=== PATIENT | female | born 1985 | race Caucasian/White ===

== ENCOUNTER 2017-09-01 15:47 | Emergency (ER) | payer BC ==
[~2017-09-01] VITALS: Ht 152.4 cm; Wt 65.0 kg
[2017-09-01 15:50] VITALS: BP 124/70; PULSE 75; RESP 18; TEMP 98.6; O2SAT 100
[2017-09-01] MEDS ORDERED: SODIUM CHLOR 0.9% 1000 ML INJ 1,000 ML IV ONE (16:30)
--- NOTE | 2017-09-01 16:54 | PD ---
HPI Chief Complaint: Related Problem Time Seen by Provider: 16:00 Travel History International Travel<30 days: No Contact w/Intl Traveler<30days: No Traveled to known affect area: No History of Present Illness HPI The patient is a 32-year-old female who presents emergency department after having a spontaneous . The patient states she is a whose last menstrual cycle was June 08, 2017. The patient states she had some spotting over the month of July was seen in the emergency department and then her physician's office. The patient is currently followed by the [employer] filler plastic [employer]s, Dr. Hobson. The patient was seen in her [employer] filler plastic dolls's office on Tuesday and apparently had an ultrasound which revealed a 9 week fetus that she' ll been 12 weeks of gestation with no heart tones. The patient was scheduled for an outpatient D&C next Tuesday. However, the patient had increasing bleeding earlier today, unsure if she passed products of conception. She did have some abdominal cramping which improved after taking pain medications at home. The patient thinks her blood type is A+. Patient denies any nausea, vomiting, or upper abdominal pain. The patient called her [employer]s's office and was referred to the emergency department. [facility] Past Medical History Medical History: Denies Significant Hx Tetanus Vaccination: > 5 Years ?: : 2 Miscarriage: 1 Past Surgical History Oral Surgery: Yes Other Surgery: Yes (IVF ) Social History Alcohol Use: No Tobacco Use: No Substance Use: No Allergies-Medications (Allergen,Severity, Reaction): Coded Allergies: No Known Allergies (Unverified , 09/01/17) Review of Systems Except as stated in HPI: all other systems reviewed are Neg General / Constitutional: No: Fever Cardiovascular: No: Chest Pain or Discomfort Respiratory: No: Shortness of Breath Gastrointestinal: No: Nausea, Vomiting, Abdominal Pain Genitourinary: Positive: Pelvic Pain, Vaginal Bleeding, No: Dysuria, Discharge Physical Exam Narrative GENERAL: Awake, alert, pleasant 32-year-old female who appears her stated age and is in no acute respiratory distress. SKIN: Focused skin assessment warm/dry. HEAD: Atraumatic. Normocephalic. EYES: No injection or drainage. ENT: No nasal bleeding or discharge. Mucous membranes pink and moist. NECK: Trachea midline. No JVD. GASTROINTESTINAL: Abdomen soft, non-tender, nondistended. No rebound tenderness. Back: No CVA tenderness. Pelvic: The exam was performed in the presence of a female nurse. External examination reveals blood at the introitus. Speculum examination reveals blood in the vaginal vault. Cervix has a slightly bluish discoloration, cervical os is approximately 6-7 mm in diameter, there is blood at the cervical os. MUSCULOSKELETAL: No obvious deformities. No clubbing. No cyanosis. No edema. NEUROLOGICAL: Awake and alert. No obvious cranial nerve deficits. Motor grossly within normal limits. Normal speech. PSYCHIATRIC: Appropriate mood and affect; insight and judgment normal. Data Data Last Documented VS Vital Signs Date Time Temp Pulse Resp B/P (MAP) Pulse Ox O2 Delivery O2 Flow Rate FiO2 09/01/17 21:02 09/01/17 15:50 98.6 75 18 100 Room Air Orders Orders Complete Blood Count With Diff (09/01/17 16:21) Basic Metabolic Panel (Bmp) (09/01/17 16:21) Complete Rh (09/01/17 16:21) Urinalysis - C+S If Indicated (09/01/17 16:21) Sodium Chlor 0.9% 1000 Ml Inj (Ns 1000 M (09/01/17 16:30) Ed Poc Ultrasound (09/01/17 ) Ed Urine Pregnancytest Poc (09/01/17 16:37) Us Pelvis (Ques Preg/Ectopic) (09/01/17 ) Beta Hcg (Quant/Titer) (09/01/17 17:33) Ed Discharge Order (09/01/17 20:45) Labs Laboratory Tests Test 09/01/17 16:43 White Blood Count 9.2 TH/MM3 Red Blood Count 3.96 MIL/MM3 Hemoglobin 13.1 GM/DL Hematocrit 37.3 % Mean Corpuscular Volume 94.2 FL Mean Corpuscular Hemoglobin 33.1 PG Mean Corpuscular Hemoglobin Concent 35.2 % Red Cell Distribution Width 12.6 % Platelet Count 363 TH/MM3 Mean Platelet Volume 7.1 FL Neutrophils (%) (Auto) 75.3 % Lymphocytes (%) (Auto) 17.8 % Monocytes (%) (Auto) 6.2 % Eosinophils (%) (Auto) 0.3 % Basophils (%) (Auto) 0.4 % Neutrophils # (Auto) 6.9 TH/MM3 Lymphocytes # (Auto) 1.6 TH/MM3 Monocytes # (Auto) 0.6 TH/MM3 Eosinophils # (Auto) 0.0 TH/MM3 Basophils # (Auto) 0.0 TH/MM3 CBC Comment DIFF FINAL Differential Comment Urine Color LIGHT-YELLOW Urine Turbidity CLEAR Urine pH 6.0 Urine Specific [place] 1.002 Urine Protein TRACE mg/dL Urine Glucose (UA) NEG mg/dL Urine Ketones NEG mg/dL Urine Occult Blood LARGE Urine Nitrite NEG Urine Bilirubin NEG Urine Urobilinogen LESS THAN 2.0 MG/DL Urine Leukocyte Esterase NEG Urine RBC 13 /hpf Urine WBC 4 /hpf Urine Squamous Epithelial Cells 2 /hpf Urine Amorphous Sediment RARE Urine Bacteria FEW /hpf Microscopic Urinalysis Comment CULT NOT INDICATED Blood Urea Nitrogen 6 MG/DL Creatinine 0.65 MG/DL Random Glucose 85 MG/DL Calcium Level 8.8 MG/DL Sodium Level 138 MEQ/L Potassium Level 3.8 MEQ/L Chloride Level 104 MEQ/L Carbon Dioxide Level 25.7 MEQ/L Anion Gap 8 MEQ/L Estimat Glomerular Filtration Rate 106 ML/MIN Human Chorionic Gonadotropin, Quant 5351 MIU/ML MDM Medical Decision Making Medical Screen Exam Complete: Yes Emergency Medical Condition: Yes Medical Record Reviewed: Yes Interpretation(s) Last Impressions Pelvis Ultrasound 09/01/17 0000 Signed Impressions: Service Date/Time: August 17:29 - CONCLUSION: Anechoic cyst right ovary. Hypoechoic cystic structure left ovary. No identifiable intrauterine gestation at this time. Close clinical and sonographic followup recommended. Gallo Suresh MD Laboratory Tests Test 09/01/17 16:43 White Blood Count 9.2 TH/MM3 Red Blood Count 3.96 MIL/MM3 Hemoglobin 13.1 GM/DL Hematocrit 37.3 % Mean Corpuscular Volume 94.2 FL Mean Corpuscular Hemoglobin 33.1 PG Mean Corpuscular Hemoglobin Concent 35.2 % Red Cell Distribution Width 12.6 % Platelet Count 363 TH/MM3 Mean Platelet Volume 7.1 FL Neutrophils (%) (Auto) 75.3 % Lymphocytes (%) (Auto) 17.8 % Monocytes (%) (Auto) 6.2 % Eosinophils (%) (Auto) 0.3 % Basophils (%) (Auto) 0.4 % Neutrophils # (Auto) 6.9 TH/MM3 Lymphocytes # (Auto) 1.6 TH/MM3 Monocytes # (Auto) 0.6 TH/MM3 Eosinophils # (Auto) 0.0 TH/MM3 Basophils # (Auto) 0.0 TH/MM3 CBC Comment DIFF FINAL Differential Comment Urine Color LIGHT-YELLOW Urine Turbidity CLEAR Urine pH 6.0 Urine Specific [place] 1.002 Urine Protein TRACE mg/dL Urine Glucose (UA) NEG mg/dL Urine Ketones NEG mg/dL Urine Occult Blood LARGE Urine Nitrite NEG Urine Bilirubin NEG Urine Urobilinogen LESS THAN 2.0 MG/DL Urine Leukocyte Esterase NEG Urine RBC 13 /hpf Urine WBC 4 /hpf Urine Squamous Epithelial Cells 2 /hpf Urine Amorphous Sediment RARE Urine Bacteria FEW /hpf Microscopic Urinalysis Comment CULT NOT INDICATED Blood Urea Nitrogen 6 MG/DL Creatinine 0.65 MG/DL Random Glucose 85 MG/DL Calcium Level 8.8 MG/DL Sodium Level 138 MEQ/L Potassium Level 3.8 MEQ/L Chloride Level 104 MEQ/L Carbon Dioxide Level 25.7 MEQ/L Anion Gap 8 MEQ/L Estimat Glomerular Filtration Rate 106 ML/MIN Human Chorionic Gonadotropin, Quant 5351 MIU/ML Differential Diagnosis Differential diagnosis includes spontaneous , missed AB, threatened AB, IUP, normal , ectopic . Narrative Course IV was established, labs are drawn and sent, and the patient was placed on cardiac telemetry monitoring and continuous pulse oximetry monitoring. Bedside ultrasound was performed, there is no visible IUP, there does appear to be blood products within the uterus, therefore, formal ultrasound was ordered. POC was obtained, CBC was sent to lab. A pelvic exam was performed in the presence of a female nurse. I discussed the plan of care with the patient's [employer] prior to ordering ultrasound and labs, he is agreeable, I will notify Dr. Hobson of the findings. The patient's blood type is A positive, therefore, no indication for RhoGAM. Ultrasound reveals no IUP, cervical canal appears clear, it appears the patient had a complete AB. I discussed the findings with the patient's [employer], Dr. Hobson, who states the patient can follow-up as an outpatient. Diagnosis Primary Impression: Spontaneous Patient Instructions: General Instructions Additional Instructions: Please provide the patient copy of her labs and ultrasound report at discharge. Follow up with her [employer]. Return if symptoms worsen or progress. Med/Other Pt SpecificInfo: No Change to Meds Disposition: 01 DISCHARGE HOME Condition: Stable Van Montez MD Sep 01, 2017 16:53
[2017-09-01 17:15] LABS: AUTOMATED NEUTROPHIL # 6.9 TH/MM3 (1.8-7.7); BASOPHIL % 0.4 % (0.0-2.0); EOSINOPHIL % 0.3 % (0.0-4.0); HEMATOCRIT 37.3 % (35.0-46.0); HEMOGLOBIN 13.1 GM/DL (11.6-15.3); LYMPH % 17.8 % (9.0-44.0); LYMPHOCYTE # 1.6 TH/MM3 (1.0-4.8); MEAN CELL VOLUME 94.2 FL (80.0-100.0); MEAN CORPUSCULAR HEMOGLOBIN 33.1 PG (27.0-34.0); MEAN CORPUSCULAR HGB CONC 35.2 % (32.0-36.0); MEAN PLATELET VOLUME 7.1 FL (7.0-11.0); MONO % 6.2 % (0.0-8.0); MONOCYTE # 0.6 TH/MM3 (0-0.9); NEUT % 75.3 % (16.0-70.0); PLATELET COUNT 363 TH/MM3 (150-450); RED BLOOD COUNT 3.96 MIL/MM3 (4.00-5.30); RED CELL DISTRIBUTION WIDTH 12.6 % (11.6-17.2); WHITE BLOOD COUNT 9.2 TH/MM3 (4.0-11.0)
[2017-09-01 17:32] LABS: AMORPHOUS SEDIMENT, URINE RARE; BACTERIA, URINE FEW /hpf; BILIRUBIN, URINE NEG (NEG); BLOOD, URINE LARGE (NEG); GLUCOSE,URINE NEG (NEG); KETONE, URINE NEG (NEG); NITRITE,URINE NEG (NEG); SQUAMOUS EPITHELIAL CELL URINE 2 /hpf (0-5); URINE COLOR LIGHT-YELLOW (YELLW/STRAW); URINE LEUKOCYTE ESTERASE NEG (NEG)
[2017-09-01 17:41] LABS: BICARBONATE 25.7 MEQ/L (21.0-32.0); CALCIUM 8.8 MG/DL (8.5-10.1); CREATININE 0.65 MG/DL (0.50-1.00)
--- NOTE | 2017-09-01 20:37 | RADRPT ---
EXAM DATE/TIME: 09/01/2017 17:29 [facility] COMPARISON: No previous studies available for comparison. INDICATIONS : Bleeding and pain with . LAB(S): Beta-hC MEDICAL HISTORY : . Miscarriage x1. SURGICAL HISTORY : IVF. ENCOUNTER: Initial ACUITY: 1 week PAIN SCORE: 2/10 LOCATION: Bilateral pelvis MEASUREMENTS: UTERUS: 11.1 x 6.9 x 5.2 cm ENDOMETRIAL STRIPE: 11 mm RIGHT OVARY: 3.0 x 1.6 x 1.5 cm LEFT OVARY: 3.9 x 2.2 x 1.6 cm FREE FLUID: No CROWN RUMP LENGTH: Non visualized. = WKS DAYS FHR: Non visualized. BPM FINDINGS: UTERUS: The myometrium has homogeneous echotexture without mass. RIGHT OVARY: 1.6 x 1.4 x 1.6 cm anechoic cystic structure the right ovary. LEFT OVARY: 1.8 x 1.8 x 1.4 cm hypoechoic left ovarian mass. MISCELLANEOUS: No free fluid. CONCLUSION: Anechoic cyst right ovary. Hypoechoic cystic structure left ovary. No identifiable intrauterine gestation at this time. Close cl inical and sonographic followup recommended. Gallo Suresh MD on September 01, 2017 at 20:33 Board Certified Radiologist. This report was verified electronically.
--- NOTE | 2017-09-01 20:45 | PD ---
Data Data Last Documented VS Vital Signs Date Time Temp Pulse Resp B/P (MAP) Pulse Ox O2 Delivery O2 Flow Rate FiO2 09/01/17 15:50 98.6 75 18 124/70 (88) 100 Room Air Orders Orders Complete Blood Count With Diff (09/01/17 16:21) Basic Metabolic Panel (Bmp) (09/01/17 16:21) Complete Rh (09/01/17 16:21) Urinalysis - C+S If Indicated (09/01/17 16:21) Sodium Chlor 0.9% 1000 Ml Inj (Ns 1000 M (09/01/17 16:30) Ed Poc Ultrasound (09/01/17 ) Ed Urine Pregnancytest Poc (09/01/17 16:37) Us Pelvis (Ques Preg/Ectopic) (09/01/17 ) Beta Hcg (Quant/Titer) (09/01/17 17:33) Labs Laboratory Tests Test 09/01/17 16:43 White Blood Count 9.2 TH/MM3 Red Blood Count 3.96 MIL/MM3 Hemoglobin 13.1 GM/DL Hematocrit 37.3 % Mean Corpuscular Volume 94.2 FL Mean Corpuscular Hemoglobin 33.1 PG Mean Corpuscular Hemoglobin Concent 35.2 % Red Cell Distribution Width 12.6 % Platelet Count 363 TH/MM3 Mean Platelet Volume 7.1 FL Neutrophils (%) (Auto) 75.3 % Lymphocytes (%) (Auto) 17.8 % Monocytes (%) (Auto) 6.2 % Eosinophils (%) (Auto) 0.3 % Basophils (%) (Auto) 0.4 % Neutrophils # (Auto) 6.9 TH/MM3 Lymphocytes # (Auto) 1.6 TH/MM3 Monocytes # (Auto) 0.6 TH/MM3 Eosinophils # (Auto) 0.0 TH/MM3 Basophils # (Auto) 0.0 TH/MM3 CBC Comment DIFF FINAL Differential Comment Urine Color LIGHT-YELLOW Urine Turbidity CLEAR Urine pH 6.0 Urine Specific [place] 1.002 Urine Protein TRACE mg/dL Urine Glucose (UA) NEG mg/dL Urine Ketones NEG mg/dL Urine Occult Blood LARGE Urine Nitrite NEG Urine Bilirubin NEG Urine Urobilinogen LESS THAN 2.0 MG/DL Urine Leukocyte Esterase NEG Urine RBC 13 /hpf Urine WBC 4 /hpf Urine Squamous Epithelial Cells 2 /hpf Urine Amorphous Sediment RARE Urine Bacteria FEW /hpf Microscopic Urinalysis Comment CULT NOT INDICATED Blood Urea Nitrogen 6 MG/DL Creatinine 0.65 MG/DL Random Glucose 85 MG/DL Calcium Level 8.8 MG/DL Sodium Level 138 MEQ/L Potassium Level 3.8 MEQ/L Chloride Level 104 MEQ/L Carbon Dioxide Level 25.7 MEQ/L Anion Gap 8 MEQ/L Estimat Glomerular Filtration Rate 106 ML/MIN Human Chorionic Gonadotropin, Quant 5351 MIU/ML MDM Supervised Visit with [facility]: No Narrative Course The patient was evaluated by the previous provider and signed out to me at the beginning of my shift at approximate 7:00 PM pending pelvic ultrasound and disposition. See his note for further details. Briefly this a 32-year-old female who was diagnosed with a missed , scheduled for a D&C on Tuesday by her [employer] physician, here for evaluation of vaginal bleeding. Pelvic ultrasound shows no IUP, no retained products, left ovarian cyst. The previous provider discussed the case already with the patient 's OB physician Dr. Hobson, and if there are no retained products of conception, the patient will follow-up with him this week. Patient was informed of ultrasound findings. She is stable for discharge home and is eager to be discharged. She was informed on when to return to the emergency department. She verbalizes understanding and agreement with plan. Diagnosis Primary Impression: Spontaneous Referrals: [facility] 1 week Additional Instruction: Follow-up with your [employer] physician Dr. Hobson this week. Return to the emergency department for worsening symptoms or any other concerns. Disposition: 01 DISCHARGE HOME Condition: Stable Raul Salomon MD Sep 01, 2017 20:45
== END 2017-09-01 21:04 | disposition home or self-care (01) ==
LOC: NEPC 15:47
DX: O03.9 Complete or unspecified spontaneous abortion without complication (principal); O34.81 Maternal care for other abnormalities of pelvic organs, first trimester; N83.202 Unspecified ovarian cyst, left side; Z34.91 Encounter for supervision of normal pregnancy, unspecified, first trimester
CPT/HCPCS: 76700; 80048; 81001; 84702; 84703; 85025; 86901; 96360; 99285; J7030